=== PATIENT | female | born 1995 | race Two or more races ===

== ENCOUNTER 2020-06-09 14:00 | Inpatient (IN) | payer OTHER ==
[~2020-06-09] VITALS: Ht 152.4 cm; Wt 3.2 kg
[2020-06-11] MEDS ORDERED: SYNTHROID88 MCG PO (11:38)
[2020-06-11] MEDS ORDERED: PRENATAL CAPLE1 EAC1 PO (11:39)
[2020-06-15] MEDS ORDERED: IBU800 MG PO (11:28)
[2020-06-15] MEDS ORDERED: SIMETHICONE125 M1 PO (11:29)
[2020-06-15] MEDS ORDERED: COLACE100 MG PO (11:29)
== END 2020-06-15 11:44 | disposition home or self-care (01) | DRG 788 ==
LOC: LDR 06-11 10:43 → OB/GYN 06-11 14:00 → LDR 06-11 22:43 → OB/GYN 06-12 17:53
PROVIDERS: ADMIT Obstetrics & Gynecology; ATTEND Obstetrics & Gynecology
PROC: 3E0P7VZ Introduction of Hormone into Female Reproductive, Via Natural or Artificial Opening (ICD-10-PCS; 2020-06-11)
PROC: 4A1HXFZ Monitoring of Products of Conception, Cardiac Rhythm, External Approach (ICD-10-PCS; 2020-06-11)
PROC: 3E033VJ Introduction of Other Hormone into Peripheral Vein, Percutaneous Approach (ICD-10-PCS; 2020-06-12)
PROC: 10D00Z1 Extraction of Products of Conception, Low, Open Approach (ICD-10-PCS; principal; 2020-06-12 15:00)
DX: O61.0 Failed medical induction of labor (principal); O99.824 Streptococcus B carrier state complicating childbirth; Z3A.39 39 weeks gestation of pregnancy; Z37.0 Single live birth; Z20.822 Contact with and (suspected) exposure to COVID-19